=== PATIENT | female | born 1935 | race Caucasian/White ===

== ENCOUNTER 2020-10-04 18:20 | Emergency (ER) | payer OTHER ==
[2020-10-04 19:08] LABS: HEMOGLOBIN 14.7 gm/dl (12.3-15.3); RED BLOOD COUNT 4.96 M/UL (4.00-5.10); WHITE BLOOD COUNT 7.3 K/UL (4.5-11.0)
[2020-10-04 19:37] LABS: BUN/CREATININE RATIO 22 (0-10)
== END 2020-10-04 21:00 | disposition home or self-care (01) ==
LOC: ER1 18:20
PROVIDERS: Emergency Medicine
DX: R55 Syncope and collapse (principal); I25.2 Old myocardial infarction; E11.9 Type 2 diabetes mellitus without complications; I10 Essential (primary) hypertension; Z90.49 Acquired absence of other specified parts of digestive tract; Z90.89 Acquired absence of other organs; Z88.0 Allergy status to penicillin; Z79.01 Long term (current) use of anticoagulants; F17.200 Nicotine dependence, unspecified, uncomplicated
CPT/HCPCS: 71045; 80053; 81001; 82550; 82553; 83735; 83874; 83880; 84100; 84439; 84443; 84484; 85025; 85610; 85730; 93005; 99284